=== PATIENT | female | born 1960 | race African-American/Black ===

== ENCOUNTER 2022-03-03 22:35 | Observation (INO) | payer SELFPAY ==
[2022-03-03 23:36] LABS: Absolute Lymphocytes (CBC) 2.8 K/uL (0.7-4.9); Hematocrit 33.4 % (36.0-45.0); Lymphocytes % 37.8 % (15.3-44.8); MCV 82.4 fL (80-100); MPV 8.1 fL (7.6-11.3); RBC Red Blood Cell Count 4.06 M/uL (3.86-4.86)
[2022-03-03 23:54] LABS: Potassium 3.5 mmol/L (3.5-5.1); Troponin High Sensitivity 13.4 pg/mL (<58.9)
--- NOTE | 2022-03-04 01:12 | EDPHYS ---
Physician Documentation [facility] Name: Damon William Age: 61 yrs Sex: Female : 1960 Arrival Date: 03/03/2022 Time: 22:43 Bed 15 Private MD: ED Physician Da Phillips HPI: 03/03 23:26 This 61 yrs old Black Female presents to ER via EMS with complaints of Chest pain. rt 23:26 The patient or guardian reports chest pain that is located primarily in the substernal rt area. Onset: 2 hour(s) ago. The pain radiates to left jaw. Associated signs and symptoms: The patient has no apparent associated signs or symptoms. The chest pain is described as aching. Duration: The patient or guardian reports a single episode. Modifying factors: The symptoms are alleviated by ASA, NTG, the symptoms are aggravated by nothing. Severity of pain: At its worst the pain was moderate in the emergency department the pain has improved. The patient has experienced a previous episode. She presents to the ED with substernal chest pain rating to the left jaw prematures prior to arrival. It is not exertional in nature. She 1 prior episode, denies previous cardiac work-up. Symptoms are improving with nitrates from EMS. Symptoms are moderate in severity, no other aggravating or alleviating factors.. Historical: - Allergies: 22:57 No Known Allergies; ha1 - Home Meds: 22:57 lisinopril 20 mg Oral tab [Active]; Trazodone Oral [Active]; amlodipine oral [Active]; ha1 quetiapine oral [Active]; - PMHx: 22:57 Hypertensive disorder; ha1 - Immunization history:: Adult Immunizations up to date. - Social history:: Smoking status: unknown. - Family history:: not pertinent. ROS: 23:26 Constitutional: Negative for fever, chills, and weight loss, Eyes: Negative for injury, rt pain, redness, and discharge, ENT: Negative for injury, pain, and discharge, Neck: Negative for injury, pain, and swelling, Respiratory: Negative for shortness of breath, cough, wheezing, and pleuritic chest pain, Abdomen/GI: Negative for abdominal pain, nausea, vomiting, diarrhea, and constipation, Back: Negative for injury and pain, MS/Extremity: Negative for injury and deformity, Skin: Negative for injury, rash, and discoloration, Neuro: Negative for headache, weakness, numbness, tingling, and seizure, Psych: Negative for depression, anxiety, suicide ideation, homicidal ideation, and hallucinations. 23:26 Cardiovascular: Positive for chest pain, Negative for edema. Exam: 23:26 Constitutional: This is a well developed, well nourished patient who is awake, alert, rt and in no acute distress. Head/Face: Normocephalic, atraumatic. Eyes: Pupils equal round and reactive to light, extra-ocular motions intact. Lids and lashes normal. Conjunctiva and sclera are non-icteric and not injected. Cornea within normal limits. Periorbital areas with no swelling, redness, or edema. ENT: Nares patent. No nasal discharge, no septal abnormalities noted. Tympanic membranes are normal and external auditory canals are clear. Oropharynx with no redness, swelling, or masses, exudates, or evidence of obstruction, uvula midline. Mucous membranes moist. Neck: Trachea midline, no thyromegaly or masses palpated, and no cervical lymphadenopathy. Supple, full range of motion without nuchal rigidity, or vertebral point tenderness. No Meningismus. Chest/axilla: Normal chest wall appearance and motion. Nontender with no deformity. No lesions are appreciated. Cardiovascular: Regular rate and rhythm with a normal S1 and S2. No gallops, murmurs, or rubs. Normal PMI, no JVD. No pulse deficits. Respiratory: Lungs have equal breath sounds bilaterally, clear to auscultation and percussion. No rales, rhonchi or wheezes noted. No increased work of breathing, no retractions or nasal flaring. Abdomen/GI: Soft, non-tender, with normal bowel sounds. No distension or tympany. No guarding or rebound. No evidence of tenderness throughout. Back: No spinal tenderness. No costovertebral tenderness. Full range of motion. MS/ Extremity: Pulses equal, no cyanosis. Neurovascular intact. Full, normal range of motion. Neuro: Awake and alert, GCS 15, oriented to person, place, time, and situation. Cranial nerves II-XII grossly intact. Motor strength 5/5 in all extremities. Sensory grossly intact. Cerebellar exam normal. Normal gait. Psych: Awake, alert, with orientation to person, place and time. Behavior, mood, and affect are within normal limits. 23:26 ECG was reviewed by the Attending Physician. Vital Signs: 22:53 BP 132 / 75; Pulse 75; Resp 19 S; Temp 97.9; Pulse Ox 100% on R/A; Weight 63.5 kg; ha1 Height 5 ft. 5 in. (165.10 cm); Pain 4/10; 23:34 BP 121 / 74; Pulse 67; Resp 16 S; Pulse Ox 100% on R/A; ha1 03/04 00:30 BP 106 / 68; Pulse 61; Resp 17 S; Pulse Ox 100% on R/A; ha1 01:30 BP 108 / 65; Pulse 62; Resp 17 S; Pulse Ox 100% on R/A; ha1 03/03 22:53 Body Mass Index 23.30 (63.50 kg, 165.10 cm) [facility] MDM: 03/03 22:47 Patient medically screened. rt 03/04 00:57 Differential diagnosis: acute myocardial infarction, acute pericarditis, chest wall rt pain, congestive heart failure pneumonia, pneumothorax, pulmonary embolus, stable angina. HEART Score: History: Moderately Suspicious (1), ECG: Normal (0), Age: > or = 65 years (2), Risk Factors: 1 or 2 risk factors (1), Troponin: < or = 1 x Normal Limit (0), Total Score = 4. Data reviewed: vital signs, nurses notes, lab test result(s), EKG, radiologic studies. ED course: Presents to the ED with chest pain, heart score is 4. She has not had a previous cardiac work-up. She received aspirin prior to arrival. Chest pain has resolved with nitrates. Will admit for further restratification. She is not hypoxic, no tachycardia, do not suspect pneumothorax, x-ray shows no evidence of pneumonia, pneumothorax.. 03/03 22:47 Order name: Basic Metabolic Panel rt 03/03 22:47 Order name: CBC with Diff rt 03/03 22:47 Order name: Troponin HS rt 03/04 01:01 Order name: CBC with Automated Diff; Complete Time: 02:26 EDMS 03/04 01:01 Order name: Basic Metabolic Panel; Complete Time: 02:26 EDMS 03/04 01:01 Order name: Troponin High Sensitivity; Complete Time: 02:26 EDMS 03/03 22:47 Order name: XRAY Chest (1 view) rt 03/03 22:47 Order name: EKG; Complete Time: 04:53 rt 03/04 01:02 Order name: SARS RAPID ha1 03/04 02:14 Order name: SARS-COV-2 Antigen Rapid; Complete Time: 02:26 EDMS 03/04 05:40 Order name: Troponin High Sensitivity EDMS 03/04 05:40 Order name: Lipid Profile EDMS 03/04 05:40 Order name: Thyroid Stimulating Hormone EDMS 03/04 11:19 Order name: RAD EDMS 03/03 22:47 Order name: Cardiac monitoring; Complete Time: 23:33 rt 03/03 22:47 Order name: EKG - Nurse/Tech; Complete Time: 23:33 rt 03/03 22:47 Order name: IV Saline Lock; Complete Time: 23:33 rt 03/03 22:47 Order name: Labs collected and sent; Complete Time: 23:33 rt 03/03 22:47 Order name: O2 Per Protocol; Complete Time: 23:08 rt 03/03 22:47 Order name: O2 Sat Monitoring; Complete Time: 23:08 rt EC/14 23:26 Rate is 73 beats/min. Rhythm is regular, Normal Sinus Rhythm. QRS Ucon is Normal. OR rt interval is normal. QRS interval is normal. QT interval is normal. No Q waves. T waves are Normal. No ST changes noted. Clinical impression: Normal ECG. Interpreted by me. Reviewed by me. Administered Medications: No medications were administered Disposition Summary: 03/04/22 00:52 Hospitalization Ordered Hospitalization Status: Observation rt Provider: Jessica Muse rt Condition: Stable rt Problem: new rt Symptoms: are resolved rt Bed/Room Type: Standard rt Location: Telemetry/MedSurg (observation)(03/04/22 14:49) bd Room Assignment: 220(03/04/22 14:49) bd Diagnosis - Chest pain, unspecified rt Forms: - Medication Reconciliation Form rt - SBAR form rt Signatures: Dispatcher [employer] EDMS Fatuma Al Cindy, RN RN cg Anamaria Mendoza RN RN ha1 Jessica Muse, NIDIA PACinthya [email or web address] Da Phillips MD MD rt Corrections: (The following items were deleted from the chart) 03/04 03:25 00:52 Telemetry/MedSurg (observation) rt cg 03: 00:52 rt cg 14:49 03:25 [facility] ER HOLD cg bd 14: 03:25 ERHOLD- cg bd
--- NOTE | 2022-03-04 01:12 | ER ---
Nurse's Notes [facility] Name: aDmon William Age: 61 yrs Sex: Female : 1960 Arrival Date: 03/03/2022 Time: 22:43 Bed 15 Private MD: Diagnosis: Chest pain, unspecified Presentation: 03/03 22:53 Chief complaint: EMS states: 61 year old female, complaints of chest pain. pain started ha1 around 8:00pm today. 324mg of baby aspirin was given. Ebola Screen: No symptoms or risks identified at this time. Initial Sepsis Screen: Does the patient meet any 2 criteria? No. Patient's initial sepsis screen is negative. Does the patient have a suspected source of infection? No. Patient's initial sepsis screen is negative. Risk Assessment: Do you want to hurt yourself or someone else? Patient reports no desire to harm self or others. Onset of symptoms was March 03, 2022. 22:53 Method Of Arrival: EMS: [facility] 22:53 Acuity: TD 3 ha1 03/04 03:40 Coronavirus screen: Vaccine status: Patient reports receiving the 2nd dose of the covid ha1 vaccine. Triage Assessment: 03/03 22:57 General: Appears comfortable, Behavior is calm, cooperative. Pain: Complains of pain in ha1 left side of chest Pain does not radiate. Pain currently is 4 out of 10 on a pain scale. Quality of pain is described as pressure, Pain began suddenly, Alleviated by medications. Neuro: Level of Consciousness is awake, alert, obeys commands, Oriented to person, place, time, situation. Cardiovascular: Patient's skin is warm and dry. Rhythm is sinus rhythm. Respiratory: Breath sounds are clear bilaterally. GI: No signs and/or symptoms were reported involving the gastrointestinal system. Abdomen is flat, non-distended, Bowel sounds present X 4 quads. : No signs and/or symptoms were reported regarding the genitourinary system. Derm: Skin is normal. Musculoskeletal: Circulation, motion, and sensation intact. Range of motion:. Historical: - Allergies: 22:57 No Known Allergies; ha1 - Home Meds: 22:57 lisinopril 20 mg Oral tab [Active]; Trazodone Oral [Active]; amlodipine oral [Active]; ha1 quetiapine oral [Active]; - PMHx: 22:57 Hypertensive disorder; ha1 - Immunization history:: Adult Immunizations up to date. - Social history:: Smoking status: unknown. - Family history:: not pertinent. Screenin:08 Abuse screen: Denies threats or abuse. Denies injuries from another. Nutritional ha1 screening: No deficits noted. Tuberculosis screening: No symptoms or risk factors identified. Fall Risk None identified. Assessment: 23:07 General: see triage. ha1 03/04 00:00 Reassessment: Patient and/or family updated on plan of care and expected duration. Pain ha1 level reassessed. Patient is alert, oriented x 3, equal unlabored respirations, skin warm/dry/pink. Patient denies pain at this time. 00:30 Reassessment: Patient and/or family updated on plan of care and expected duration. Pain ha1 level reassessed. Patient is alert, oriented x 3, equal unlabored respirations, skin warm/dry/pink. 01:30 Reassessment: Patient and/or family updated on plan of care and expected duration. Pain ha1 level reassessed. Patient is alert, oriented x 3, equal unlabored respirations, skin warm/dry/pink. Vital Signs: 03/03 22:53 BP 132 / 75; Pulse 75; Resp 19 S; Temp 97.9; Pulse Ox 100% on R/A; Weight 63.5 kg; ha1 Height 5 ft. 5 in. (165.10 cm); Pain 4/10; 23:34 BP 121 / 74; Pulse 67; Resp 16 S; Pulse Ox 100% on R/A; ha1 03/04 00:30 BP 106 / 68; Pulse 61; Resp 17 S; Pulse Ox 100% on R/A; ha1 01:30 BP 108 / 65; Pulse 62; Resp 17 S; Pulse Ox 100% on R/A; ha1 03/03 22:53 Body Mass Index 23.30 (63.50 kg, 165.10 cm) ha1 ED Course: 03/03 13:15 Inserted saline lock: 20 gauge antecubital area, using aseptic technique. Blood ha1 collected. 22:43 Patient arrived in ED. ja2 22:43 Da Phillips MD is Attending Physician. rt 22:53 Mendoza, Anamaria, RN is Primary Nurse. ha1 22:57 Triage completed. ha1 22:57 Arm band placed on right wrist. ha1 23:35 Patient has correct armband on for positive identification. Placed in gown. Bed in low ha1 position. Call light in reach. Side rails up X 1. 15 00:51 Jessica Muse PA-C is Hospitalizing Provider. rt 03:40 No provider procedures requiring assistance completed. Patient admitted, IV remains in ha1 place. Administered Medications: No medications were administered Medication: 03:40 VIS not applicable for this client. ha1 Outcome: 00:52 Decision to Hospitalize by Provider. rt 03:40 Admitted to ER Hold. Please see [facility] for further documentation. ha1 03:40 Condition: stable 03:40 Discharge instructions given to patient, Instructed on the need for admit, Demonstrated understanding of instructions. 17:06 Patient left the ED. tw2 Signatures: Amada Woodson RN RN 2 Ana Quintana Heidy, RN RN ha1 Da Phillips MD MD rt
[2022-03-04 02:13] LABS: SARS-CoV-2 Antigen Rapid Res Negative (Negative)
--- NOTE | 2022-03-04 02:30 | P.HP ---
Certification for Inpatient Patient admitted to: Observation With expected LOS: <2 Midnights Patient will require the following post-hospital care: None Practitioner: I am a practitioner with admitting privileges, knowledge of patient current condition, hospital course, and medical plan of care. Services: Services provided to patient in accordance with Admission requirements found in Title 42 Section 412.3 of the Code of Federal Regulations Patient History Date of Service: 03/04/22 Reason for admission: Chest Pain History of Present Illness: Patient is a 61-year-old female with history of hypertension who presented to the ED via EMS with complaints of chest pain. She reports that the chest pain began about 2 hours prior to arrival and radiates to her left jaw. EMS administered 324 mg aspirin and nitroglycerin en route. Patient's work-up is negative in the ED-no ST changes on EKG, chest x-ray negative, troponin WNL, vital signs stable. Her heart score is 4 and she has not had a cardiac work-up in the past. ED provider wishes admit patient for observation for ACS rule out. Home medications list reviewed: Yes - Past Medical/Surgical History Diabetic: No -: Hypertension -: Cholecystectomy -: x 3 Psychosocial/ Personal History: Patient lives at home with her family. - Family History Family History: Reviewed- Non-Contributory - Social History Smoking Status: Current some day smoker Alcohol use: No CD- Drugs: No Caffeine use: Yes Place of Residence: Home Review of Systems Cardiovascular: Chest Pain Physical Examination - Physical Exam General: Alert, In no apparent distress HEENT: Atraumatic, PERRLA, EOMI, Sclerae nonicteric Neck: Supple, 2+ carotid pulse no bruit, No LAD, Without JVD or thyroid abnormality Respiratory: Clear to auscultation bilaterally, Normal air movement Cardiovascular: Regular rate/rhythm, Normal S1 S2 Gastrointestinal: Normal bowel sounds, No tenderness Musculoskeletal: No tenderness Integumentary: No rashes Neurological: Normal speech, Normal strength at 5/5 x4 extr, Normal tone, Normal affect - Studies Laboratory Data (last 24 hrs) 03/03/22 23:19: WBC 7.40, Hgb 10.9 L, Hct 33.4 L, Plt Count 234 03/03/22 23:19: Sodium 140, Potassium 3.5, BUN 15, Creatinine 1.00, Glucose 114 H Assessment and Plan - Problems (Diagnosis) (1) Chest pain Current Visit: Yes Status: Resolved Qualifiers: Chest pain type: unspecified Qualified Code(s): R07.9 - Chest pain, unspecified (2) Hypertension Current Visit: Yes Status: Chronic Qualifiers: Hypertension type: primary hypertension Qualified Code(s): I10 - Essential (primary) hypertension (3) Anemia Current Visit: Yes Status: Chronic Qualifiers: Anemia type: unspecified type Qualified Code(s): D64.9 - Anemia, unspecified (4) CKD (chronic kidney disease) Current Visit: Yes Status: Chronic Qualifiers: Chronic kidney disease stage: stage 2 (mild) Qualified Code(s): N18.2 - Chronic kidney disease, stage 2 (mild) - Plan Patient is admitted for observation. Monitor on telemetry. Cardiology consult. Patient does not see a test grader. Initial troponin negative, repeats pending. Chest pain has resolved. Lipid panel, TSH, and echo ordered. Aspirin and atorvastatin daily. Tobacco cessation counseling. Monitor and replete electrolytes per protocol. Reconcile and continue home medications. Lovenox for VTE ppx. Full code. Discharge Plan: Home Plan to discharge in: 24 Hours - Advance Directives Does patient have a Living Will: No Does patient have a Durable POA for Healthcare: No - Code Status/Comfort Care Code Status Assessed: Yes (Full) Critical Care: No Time Spent Managing Pts Care (In Minutes): 50
[2022-03-04 03:22] VITALS: BMI 23.3
[2022-03-04] MEDS ORDERED: ONDANSETRON 4 MG/2 ML VIAL IV PRN (03:26)
[2022-03-04] MEDS ORDERED: ACETAMINOPHEN 325 MG TABLET PO PRN (03:26)
[2022-03-04 05:40] LABS: Thyroid Stimulating Hormone 1.82 uIU/mL (0.360-3.740); Troponin High Sensitivity 13.2 pg/mL (<58.9)
[2022-03-04] MEDS ORDERED: ASPIRIN EC 81 MG TAB PO ONE (07:38)
[2022-03-04] MEDS ORDERED: ENOXAPARIN 40 MG/0.4 ML SQ ONE (07:39)
[2022-03-04] MEDS ORDERED: INFLUENZA VACCINE (for 6+ mo) 0.5 ML DOSE IMVAC ONE (08:00)
--- NOTE | 2022-03-04 08:20 | EKG ---
Test Date: 2022-03-03 Test Time: 23:29:45 Senior Electrical Designer: KARLA MEASUREMENT RESULTS: Intervals: Rate: 73 TX: 144 QRSD: 84 QT: 408 QTc: 449 [place]: P: 75 TX: 144 QRS: 67 T: 68 INTERPRETIVE STATEMENTS: Normal sinus rhythm with sinus arrhythmia Normal ECG No previous ECG available for comparison Electronically Signed On 03-04-22 08:19:42 CUT TO LENGTH OPERATOR by Jerry Garcia
[2022-03-04] MEDS: ENOXAPARIN 40 MG/0.4 ML SQ SCH (08:44)
[2022-03-04] MEDS: ASPIRIN EC 81 MG TAB PO SCH (08:44)
--- NOTE | 2022-03-04 11:18 | RAD REPORT ---
EXAM DESCRIPTION: XR Chest, 1 View CLINICAL HISTORY: The patient is 61 years old and is Female; dyspnea TECHNIQUE: Frontal view of the chest. COMPARISON: No relevant prior studies available. FINDINGS: Lungs: Unremarkable. No consolidation. Pleural space: Unremarkable. No pneumothorax. Heart: Unremarkable. Mediastinum: Unremarkable. Bones/joints: Unremarkable. Vasculature: Aortic calcification. IMPRESSION: No acute findings in the chest. Electronically signed by: Quincy Lomeli MD 03/04/2022 12:57 AM PATIENT ACCOUNT SPECIALIST Due to temporary technical issues with the PACS/Fluency reporting system, reports are being signed by the in house radiologists without review as a courtesy to insure prompt reporting. The interpreting radiologist is fully responsible for the content of the report.
[2022-03-04] MEDS: SMZ./TMP. 800/160 MG TABLET PO SCH ×2 (12:35→20:45)
[2022-03-04] MEDS ORDERED: SMZ./TMP. 800/160 MG TABLET ONE (12:46)
--- NOTE | 2022-03-04 15:12 | ECHO ---
HEIGHT: 5 ft 5 in WEIGHT: 140 lb 0 oz DATE OF STUDY: 03/04/[address]: Jessica Muse 2-DIMENSIONAL: YES M.MODE: YES DOPPLER: YES COLOR FLOW: YES TDS: PORTABLE: YES DEFINITY: BUBBLE STUDY: DIAGNOSIS: CHEST PAIN CARDIAC HISTORY: CATHERIZATION: SURGERY: PROSTHETIC VALVE: PACEMAKER: MEASUREMENTS (cm) DIASTOLIC (NORMALS) SYSTOLIC (NORMALS) IVSd 0.9 (0.6-1.2) LA Diam 3.4 (1.9-4.0) LVEF 65% LVIDd 4.0 (3.5-5.7) LVIDs 2.6 (2.0-3.5) %FS 35% LVPWd 1.1 (0.6-1.2) Ao Diam 2.4 (2.0-3.7) 2 DIMENSIONAL ASSESSMENT: RIGHT ATRIUM: NORMAL LEFT ATRIUM: NORMAL RIGHT VENTRICLE: NORMAL LEFT VENTRICLE: NORMAL TRICUSPID VALVE: MILD TRICUSPID REGURGITATION MITRAL VALVE: MILD MITRAL REGURGITATION PULMONIC VALVE: NORMAL AORTIC VALVE: NORMAL PERICARDIAL EFFUSION: NONE AORTIC ROOT: NORMAL LEFT VENTRICULAR WALL MOTION: NORMAL DOPPLER/COLOR FLOW: SEE BELOW COMMENTS: 1. NORMAL LEFT VENTRICULAR EJECTION FRACTION 60-65% 2. NORMAL WALL MOTION 3. MILD MITRAL REGURGITATION, TRICUSPID REGURGITATION TECHNOLOGIST: SINTIA WALTON
--- NOTE | 2022-03-04 18:21 | P.PN ---
Date of Service: 03/04/22 Patient seen and examined. She denies any chest pain at the moment. She reported a painful rash on her left gluteal region. Troponin trended negative. Currently chest pain-free. Patient reports chronic left neck pain unrelated to any chest pain. Diagnosis: Folliculitis Chest pain-low heart score. Seen by cardiology. ACS ruled out. Echocardiogram: Unremarkable. Plan: Start Bactrim for folliculitis. Cardiology follow-up as outpatient.
[2022-03-04] MEDS ORDERED: ATORVASTATIN 40 MG TAB PO SCH (21:00)
[2022-03-05 02:25] VITALS: O2SAT 97
--- NOTE | 2022-03-05 08:25 | P.DS ---
Admission Date: 03/04/22 Discharge Date: 03/05/22 Disposition: ROUTINE DISCHARGE Discharge Condition: FAIR Reason for Admission: Chest Pain - Problems (1) Chest pain Current Visit: Yes Status: Acute (2) Hypertension Current Visit: Yes Status: Chronic Qualifiers: Hypertension type: primary hypertension Qualified Code(s): I10 - Essential (primary) hypertension Brief History of Present Illness: Patient is a 61-year-old female with history of hypertension who presented to the ED via EMS with complaints of chest pain. She reports that the chest pain began about 2 hours prior to arrival. Chest pain was nonradiating. She has a history of chronic pain in the left neck area. EMS administered 324 mg aspirin and nitroglycerin en route. Patient's work-up in the ED was negative-no ST changes on EKG, chest x-ray negative, troponin negative, vital signs stable. Her heart score was 2. Patient placed under observation for ACS rule out. Hospital Course: Patient placed on observation on the medical floor. Troponin trended negative. Patient was chest pain-free during the hospital stay. Seen and evaluated by cardiology. Echocardiogram was done which was unremarkable. She was complaining of painful rash on the left gluteal area. Examination revealed a cluster of pustules suggesting folliculitis. Patient placed on oral Bactrim. Lipid profile done was within normal limit. ACS ruled out patient is deemed stable for discharge. She will follow with Dr. Garcia as outpatient for further work-up. Prescribed aspirin daily and Lipitor. Vital Signs/Physical Exam: Temp Pulse Resp BP Pulse Ox 98.9 F 58 16 117/55 L 96 03/05/22 04:00 03/05/22 04:00 03/05/22 04:00 03/05/22 04:00 03/05/22 04:00 General: Alert, In no apparent distress HEENT: Mucous membr. moist/pink Neck: JVD not distended Respiratory: Clear to auscultation bilaterally, Normal air movement Cardiovascular: No edema, Regular rate/rhythm, Normal S1 S2 Gastrointestinal: Soft and benign, Non-distended Musculoskeletal: No swelling Neurological: Normal strength at 5/5 x4 extr Laboratory Data at Discharge: WBC 7.40 K/uL (4.3-10.9) 03/03/22 23:19 Hgb 10.9 g/dL (12.0-15.0) L 03/03/22 23:19 Hct 33.4 % (36.0-45.0) L 03/03/22 23:19 Plt Count 234 K/uL (152-406) 03/03/22 23:19 Sodium 140 mmol/L (136-145) 03/03/22 23:19 Potassium 3.5 mmol/L (3.5-5.1) 03/03/22 23:19 BUN 15 mg/dL (7-18) 03/03/22 23:19 Creatinine 1.00 mg/dL (0.55-1.3) 03/03/22 23:19 Glucose 114 mg/dL (74-106) H 03/03/22 23:19 Triglycerides 80 mg/dL (<150) 03/04/22 05:02 Cholesterol 153 mg/dL (<200) 03/04/22 05:02 HDL Cholesterol 66 mg/dL (40-60) H 03/04/22 05:02 Cholesterol/HDL Ratio 2.32 03/04/22 05:02 Home Medications: Amlodipine [Norvasc*] 10 mg PO DAILY 03/05/22 Aspirin [Aspirin EC 81 MG] 81 mg PO DAILY #30 tab 03/05/22 Atorvastatin Calcium [Lipitor] 20 mg PO BEDTIME #30 tab 03/05/22 Fluoxetine HCl 20 mg PO DAILY 03/05/22 Quetiapine [Seroquel*] 3 tab PO BEDTIME 03/05/22 Smz./Tmp. [Bactrim Ds 800 MG/160 MG*] 1 tab PO BID #12 tab 03/05/22 Trazodone HCl [Desyrel] 100 mg PO BEDTIME 03/05/22 New Medications: Aspirin [Aspirin EC 81 MG] 81 mg PO DAILY #30 tab Smz./Tmp. [Bactrim Ds 800 MG/160 MG*] 1 tab PO BID #12 tab Atorvastatin Calcium [Lipitor] 20 mg PO BEDTIME #30 tab Diet: AHA Activity: Ad rosaura Followup: Jerry Garcia MD [ACTIVE - CAN ADMIT] - 1 Week (For further cardiac work up.) Unknown,U [Primary Care Provider] - 1-2 Weeks
[2022-03-05] MEDS ORDERED: FLUOXETINE 20 MG CAP PO SCH (09:00)
[2022-03-05] MEDS ORDERED: lisinopriL 10 MG TAB PO SCH (09:00)
[2022-03-05] MEDS ORDERED: AMLODIPINE 10 MG TAB PO SCH (09:00)
[2022-03-05] MEDS: ENOXAPARIN 40 MG/0.4 ML SQ SCH (09:42)
[2022-03-05] MEDS: ASPIRIN EC 81 MG TAB PO SCH (09:43)
[2022-03-05] MEDS: SMZ./TMP. 800/160 MG TABLET PO SCH (09:43)
[2022-03-05 13:55] VITALS: BP 111/72; TEMP 97.2
[2022-03-05] MEDS ORDERED: QUETIAPINE 25 MG TAB PO SCH (21:00)
[2022-03-05] MEDS ORDERED: TRAZODONE 50 MG TABLET PO SCH (21:00)
--- NOTE | 2022-03-06 15:05 | CON ---
Date of Consultation: 03/04/2022 Reason For Consultation: Atypical chest pain and palpitation. History Of Present Illness: Ms. William is 61. Has a history of hypertension. Came in with chest pa in that radiates to the left jaw, palpitation. No nausea, vomiting, diaphoresis, PND, orthopnea, ped al edema, or syncope. Denied any fever or chills. Her EKG is normal. Echocardiogram was normal. T roponin was normal. Past Medical History: Includes hypertension. Allergies: NONE. Medications: Include amlodipine and lisinopril. Review of Systems: Negative. Social History: Negative. Family History: Negative. Physical Examination: Vital Signs: Stable, afebrile. HEENT: Negative. Neck: Supple without any bruit, lymphadenopathy, JVD, or thyromegaly. Chest: Clear to auscultation and percussion. Cardiac: Revealed a regular rhythm and rate. No murmurs, gallops, or rubs. Abdomen: Benign. Extremities: Revealed no clubbing, cyanosis, or edema. Diagnostic Data: All normal. Impression And Plan: Atypical chest pain, most likely secondary to palpation, may be supraventricula r tachycardia or atrial fibrillation. I will send her home on a low-dose beta sharmila. Her echo is normal. Her EKG is normal. She will need an outpatient followup. I think she needs to have a [employer] can and event monitor, but she can go home whenever it is okay with Dr. Anderson. MARICARMEN/LUCILA Voice ID: [id number] Report ID: [id number]
== END 2022-03-05 14:25 | disposition home or self-care (01) ==
LOC: ER 22:35 → ERHOLD 03-04 02:25 → 2ND 03-04 15:24
PROVIDERS: ADMIT Internal Medicine; ATTEND Internal Medicine
DX: R07.89 Other chest pain (principal); R00.2 Palpitations; I47.1 Supraventricular tachycardia; I48.91 Unspecified atrial fibrillation; D64.9 Anemia, unspecified; I12.9 Hypertensive chronic kidney disease with stage 1 through stage 4 chronic kidney disease, or unspecified chronic kidney disease; N18.2 Chronic kidney disease, stage 2 (mild); L73.9 Follicular disorder, unspecified; F17.200 Nicotine dependence, unspecified, uncomplicated; Z20.822 Contact with and (suspected) exposure to COVID-19
CPT/HCPCS: 36415; 71045; 80048; 80061; 84443; 84484; 85025; 87811; 93005; 93306; 99285; G0378; J1650